=== PATIENT | female | born 1985 | race Caucasian/White ===

== ENCOUNTER 2017-11-17 11:04 | Emergency (ER) | payer BC ==
[2017-11-17 11:13] VITALS: BP 156/108
--- NOTE | 2017-11-17 15:51 | UC ---
John Murray Angela, scribed for Gary Robert MD on 11/17/17 at 1121 . General HPI - HPI Summary HPI Summary: This pt is a 32 y/o female presenting to [facility] c/o rash and intermittent fevers for the past couple of days. Pt reports she had a tick on her 3-4 weeks ago. She states that for the past 2 days she has had fevers on and off and developed a rash. Pt notes her maximum temperature was 101 F. The rash is located on her abdomen and back. Denies cough, SOB, chest pain, nausea, vomiting. Denies any PMHx. - History of Current Complaint [facility] St[facility] Complaint: FEVER, RASH Time Seen by Provider: 11/17/17 11:15 Hx Obtained From: Patient Hx Last Menstrual Period: 11/03/17 Onset/Duration: Lasting Days, Still Present Timing: Constant Current Severity: None Pain Intensity: 0 Aggravating: nothing Alleviating: nothing Associated Signs & Symptoms: Positive: Fever - intermittent, Other - POS: rash. Negative: Cough, Chest Pain, Nausea, SOB, Vomiting - Allergy/Home Medications Allergies/Adverse Reactions: Allergies Allergy/AdvReac Type Severity Reaction Status Date / Time No Known Allergies Allergy Verified 11/17/17 11:13 Home Medications: Home Medications Citalopram TAB* [Celexa TAB*] 10 mg PO DAILY 11/17/17 [History Confirmed ] PMH/Surg Hx/FS Hx/Imm Hx Other Endocrine History: DENIES: diabetes Other Cardiovascular History: DENIES: HTN - Surgical History Surgery Procedure, Year, and Place: tubal ligation- 2009 - Family History Known Family History: Negative: Cardiac Disease, Hypertension - Social History Alcohol Use: Weekly Alcohol Amount: 1-2 times per week Substance Use Type: None Smoking Status (MU): Former Smoker Review of Systems Constitutional: Fever Skin: Rash Eyes: Negative ENT: Negative Respiratory: Negative Cardiovascular: Negative Gastrointestinal: Negative Genitourinary: Negative Motor: Negative Neurovascular: Negative Musculoskeletal: Negative Neurological: Negative Psychological: Negative All Other Systems Reviewed And Are Negative: Yes Physical Exam - Summary Physical Exam Summary: VITAL SIGNS: Reviewed. GENERAL: Patient is a well-developed and nourished female who is lying comfortable in the stretcher. Patient is not in any acute respiratory distress. HEAD AND FACE: Normocephalic EYES: PERRLA, EOMI x 2. EARS: Hearing grossly intact. MOUTH: Oropharynx within normal limits. NECK: Supple, trachea is midline, no adenopathy, no JVD, no carotid bruit. CHEST: Symmetric, no tenderness at palpation LUNGS: Clear to auscultation bilaterally. No wheezing or crackles. CVS: Regular rate and rhythm, S1 and S2 present, no murmurs or gallops appreciated. ABDOMEN: Soft, non-tender. Bowel sounds are normal. No abdominal abnormal pulsations. EXTREMITIES: Full ROM in all major joints, no edema, no cyanosis or clubbing. NEURO: Alert and oriented x 3. No acute neurological deficits. Speech is normal and follows commands. SKIN: Dry and warm. Pt has an erythematous rash with central clearing. Triage Information Reviewed: Yes Vital Signs: Initial Vital Signs Temp 97.9 F 11/17/17 11:09 Pulse 92 11/17/17 11:09 Resp 16 11/17/17 11:09 BP 156/108 11/17/17 11:09 Pulse Ox 99 11/17/17 11:09 Vital Signs Reviewed: Yes Course/Dx - Course Course Of Treatment: Pt is a 32 y/o female who presents with rash and intermittent fevers for the past couple of days. Pt reports she had a tick on her 3-4 weeks ago. She states that for the past 2 days she has had fevers on and off and developed a rash. Pt notes her maximum temperature was 101 F. The rash is located on her abdomen and back. Denies cough, SOB, chest pain, nausea, vomiting. Denies any PMHx. On exam pt has an erythematous rash with a central clearing, consistent with Lyme Disease. She will be given a prescription for Doxycycline. Pt will be discharged to home with follow up from PCP. Pt was instructed to return to the urgent care or go to ER immediately if any of the symptoms return or worsens. Plan of care was discussed with the patient and pt understands and agrees. All questions were answered to patient satisfaction. There were no further complaints or concerns. Pt is hemodynamically stable, alert and oriented x3. The patient was found to have increased blood pressure in UC. The patient will follow up with PCP for better control of BP. - Differential Dx - Multi-Symptom Provider Diagnoses: Lyme disease Discharge - Sign-Out/Discharge Documenting (check all that apply): Discharge/Admit/Transfer - Discharge - Discharge Plan Condition: Stable Disposition: HOME Prescriptions: DOXYcycline CAP(*) [DOXYcycline 100MG CAP(*)] 100 mg PO BID #42 cap Patient Education Materials: Lyme Disease (ED) Referrals: [facility] [Outside] Additional Instructions: FOLLOW UP WITH YOUR PRIMARY CARE PROVIDER WITHIN ONE WEEK FOR HIGH BLOOD PRESSURE NOTED TODAY. RETURN TO URGENT CARE OR THE ED FOR ANY WORSENING OR NEW SYMPTOMS. The documentation as recorded by the John warner Angela accurately reflects the service I personally performed and the decisions made by , Gary Robert MD.
== END 2017-11-17 11:30 | disposition home or self-care (01) ==
LOC: UCEAST 11:04
DX: A69.20 Lyme disease, unspecified (principal); Z87.891 Personal history of nicotine dependence
CPT/HCPCS: 99212; G0463

== ENCOUNTER 2018-02-16 13:44 | Emergency (ER) | payer BC, OTHER ==
[2018-02-16 13:55] VITALS: BP 168/87
[2018-02-16 14:46] LABS: ABS Basophils 0.1 10^3/ul (0-0.2); ABS Eosinophils 0.1 10^3/ul (0-0.6); ABS Lymphocytes 1.7 10^3/ul (1.0-4.8); ABS Monocytes 0.7 10^3/ul (0-0.8); ABS Neutrophils 4.7 10^3/ul (1.5-7.7); ABS Nucleated RBC 0 10^3/ul; Eosinophil % 1.9 % (0-6); Hematocrit 41 % (35-47); Lymphocyte % 23.3 % (25-47); Mean Corpuscular HGB Conc 34 g/dl (31-36); Mean Corpuscular Hemoglobin 31 pg (27-31); Mean Corpuscular Volume 91 fL (80-97); Mean Platelet Volume 10.3 um3 (7.4-10.4); Nucleated Red Blood Cells % 0.1; Platelet Count 176 10^3/ul (150-450); Red Blood Count 4.48 10^6/ul (4.00-5.40); Red Cell Distribution Width 14 % (10.5-15); White Blood Count 7.2 10^3/ul (3.5-10.8)
[2018-02-16 15:06] LABS: EGFR Non-African American 86.3 (>60)
--- NOTE | 2018-02-16 17:38 | ED ---
- HPI Summary HPI Summary: Patient presents with accidental needlestick to her thumb while at work today drawing blood on a patient. 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 She reports she jessica blood on patient XX and as she was withdrawing the 22-gauge needle from the patient XX's vein,patient XX attempted to help this pt with placing the gauze and this action pushed the needle into this patient's thumb. The skin was broken and blood was expressed from this patient's thumb. She denies pain and reports that her tetanus is up to date as well as her hepatitis B series. Patient XX does not have any known HIV or hepatitis C per this patient's knowledge however this was not asked today nor noted in any great detail during their time together. This patient provided our staff with patient XX's information. Contacted patient XX's daughter who is her healthcare proxy who gave clearance for us to test patient XX for HIV and hepatitis C today from the labs that were already drawn. Spoke w/ lab who will process said labs. Pt does not want to start PEP at this time but will consider if her risk increases once other labs return. - History of Current Complaint Chief Complaint: [facility] Stated Complaint: NEEDLE STICK Time Seen by Provider: 02/16/18 14:05 PMH/Surg Hx/FS Hx/Imm Hx Previously Healthy: Yes Endocrine/Hematology History: Denies: Hx Anticoagulant Therapy, Hx Blood Disorders, Autoimmune Disease - Surgical History Surgery Procedure, Year, and Place: tubal ligation- 2009 - Immunization History Immunizations Up to Date: Yes Infectious Disease History: No Infectious Disease History: Denies: Hx Human Immunodeficiency Virus (HIV), Hx of Known/Suspected MRSA, Traveled Outside the [place] in Last 30 Days - Family History Known Family History: Negative: Cardiac Disease, Hypertension - Social History 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 Lives: With Family Alcohol Use: Weekly Alcohol Amount: 1-2 times per week Hx Substance Use: No Substance Use Type: Reports: None Hx Tobacco Use: No - quit in Jun 2017 Smoking Status (MU): Former Smoker Review of Systems Positive: no symptoms reported Musculoskeletal: Negative Skin: Other - needlestick Neurological: Negative Psychological: Normal All Other Systems Reviewed And Are Negative: Yes Physical Exam Triage Information Reviewed: Yes Vital Signs On Initial Exam: Initial Vitals Temp Pulse Resp BP Pulse Ox 98.2 F 99 14 168/87 98 02/16/18 13:53 02/16/18 13:53 02/16/18 13:53 02/16/18 13:53 02/16/18 13:53 Vital Signs Reviewed: Yes Appearance: Positive: Well-Appearing, No Pain Distress, Well-Nourished Skin: Positive: Warm, Skin Color Reflects Adequate Perfusion, Dry - no erythema , no ecchymosis, no bleeding over affected area of palmar surface of thumb Head/Face: Positive: Normal Head/Face Inspection Eyes: Positive: EOMI ENT: Positive: Hearing grossly normal Respiratory/Lung Sounds: Positive: Breath Sounds Present Cardiovascular: Positive: Pulses are Symmetrical in both Upper and Lower Extremities Musculoskeletal: Positive: Normal, Strength/ROM Intact Neurological: Positive: Normal, Sensory/Motor Intact Psychiatric: Positive: Normal Diagnostics - Vital Signs Vital Signs Temp Pulse Resp BP Pulse Ox 02/16/18 13:53 98.2 F 99 14 168/87 98 - Laboratory Lab Results: Lab Results 02/16/18 02/16/18 02/16/18 Range/Units 14:27 14:27 14:27 WBC 7.2 (3.5-10.8) 10^3/ul RBC 4.48 (4.00-5.40) 10^6/ul Hgb 14.0 (12.0-16.0) g/dl Hct 41 (35-47) % MCV 91 (80-97) fL MCH 31 (27-31) pg MCHC 34 (31-36) g/dl RDW 14 (10.5-15) % Plt Count 176 (150-450) 10^3/ul MPV 10.3 (7.4-10.4) um3 Neut % (Auto) 64.5 (38-83) % Lymph % (Auto) 23.3 L (25-47) % [place] % (Auto) 9.4 H (0-7) % Eos % (Auto) 1.9 (0-6) % Baso % (Auto) 0.9 (0-2) % Absolute Neuts (auto) 4.7 (1.5-7.7) 10^3/ul Absolute Lymphs (auto) 1.7 (1.0-4.8) 10^3/ul Absolute Monos (auto) 0.7 (0-0.8) 10^3/ul Absolute Eos (auto) 0.1 (0-0.6) 10^3/ul Absolute Basos (auto) 0.1 (0-0.2) 10^3/ul Absolute Nucleated RBC 0 10^3/ul Nucleated RBC % 0.1 Sodium 140 (135-145) mmol/L Potassium 3.7 (3.5-5.0) mmol/L Chloride 105 (101-111) mmol/L Carbon Dioxide 28 (22-32) mmol/L Anion Gap 7 (2-11) mmol/L BUN 15 (6-24) mg/dL Creatinine 0.77 (0.51-0.95) mg/dL Est GFR ( Amer) 104.5 (>60) Est GFR (Non-Af Amer) 86.3 (>60) BUN/Creatinine Ratio 19.5 (8-20) Glucose 102 H (70-100) mg/dL Calcium 9.3 (8.6-10.3) mg/dL Total Bilirubin 0.40 (0.2-1.0) mg/dL AST 17 (13-39) U/L ALT 18 (7-52) U/L Alkaline Phosphatase 61 (34-104) U/L Total Protein 7.0 (6.4-8.9) g/dL Albumin 4.5 (3.2-5.2) g/dL Globulin 2.5 (2-4) g/dL Albumin/Globulin Ratio 1.8 (1-3) Beta HCG, Quant < 0.60 mIU/mL HIV 1&2 Antibody Rapid Nonreactive (Nonreactive) Result Diagrams: 02/16/18 14:27 02/16/18 14:27 Lab Statement: Any lab studies that have been ordered have been reviewed, and results considered in the medical decision making process. Needlestick Course/Dx - Course Course Of Treatment: Will call pt once labs return from pt XX. Pt confirmed she provided an UTD phone # to staff at registration and will be anticipating our call later today. - Diagnoses Provider Diagnoses: Needlestick injury with contaminated needle Discharge - Sign-Out/Discharge Documenting (check all that apply): Patient Departure - Discharge Plan Condition: Stable Disposition: HOME Patient Education Materials: Needle Stick Injuries (ED) Referrals: Melanie VALENCIA,Brayan Salas [Medical Doctor] - Additional Instructions: The source patient. Injury today has been contacted and agrees to HIV and hepatitis C testing. He will receive a call as soon as these results have returned to advise you of your risk of infection and recommendation for proceeding with or refraining from PEP. It was also discussed that even if you' re considered low risk, there is no guarantee of 0% risk and so PEP is always an option should you choose to take it. If you are good candidate for Pap, we will also review your labs prior to starting this medication to make sure it is safe to start. It is advised that he follow up with the infectious disease specialist for follow-up lab testing as well as medication progression, side effects, lab rechecks, etc. Call to schedule. - Billing Disposition and Condition Condition: STABLE Disposition: Home
== END 2018-02-16 15:53 | disposition home or self-care (01) ==
LOC: ED 13:44
DX: Z77.21 Contact with and (suspected) exposure to potentially hazardous body fluids (principal); Z87.891 Personal history of nicotine dependence
CPT/HCPCS: 36415; 80053; 84702; 85025; 86703; 86706; 86803; 87340; 99282